=== PATIENT | male | born 1965 | race Caucasian/White ===

== ENCOUNTER 2019-06-01 22:53 | Inpatient (IN) | payer OTHER ==
[~2019-06-01] VITALS: Ht 172.7 cm; Wt 103.0 kg
[2019-06-02 00:30] VITALS: BP 135/96
--- NOTE | 2019-06-02 00:30 | NUR ---
SANDER HANDTELEVISION NEWSCAST DIRECTOR NOTES Admitted this patient direct from [facility] to TELE 322-2 due to CHF under the service of Dr. Aviles. Admission routine done. On tele with Sinus Tach noted. Patient denies any discomfort at this time. Admission orders noted and carried out. Kept on bed clean, dry and comfortable. Call light within easy reach. Will continue to monitor accordingly.
[2019-06-02] MEDS ORDERED: ONDANSETRON HCL/PF 4 MG/2 ML VIAL IVP PRN (01:00)
[2019-06-02] MEDS ORDERED: MAGNESIUM HYDROXIDE 30 ML UDC PO PRN (01:00)
[2019-06-02] MEDS ORDERED: ZOLPIDEM TARTRATE 5 MG TABLET PO PRN (01:00)
[2019-06-02] MEDS ORDERED: HYDROCODONE/APAP 5/325MG 1 EACH TABLET PO PRN (01:00)
[2019-06-02] MEDS ORDERED: MAG HYDROX/AL HYDROX/SIMETH 30 ML UDC PO PRN (01:00)
[2019-06-02] MEDS ORDERED: ACETAMINOPHEN 325 MG TABLET PO PRN (01:00)
[2019-06-02] MEDS ORDERED: Z GUARD REMEDY 2 OZ OINT TP PRN (01:00)
[2019-06-02 01:32] LABS: BASOPHILS # (AUTO) 0.1 /CMM (0.0-0.2); BASOPHILS % (AUTO) 2.4 % (0.0-2.0); EOSINOPHILS % (AUTO) 1.5 % (0.0-6.0); HEMATOCRIT 30 % (39-51); HEMOGLOBIN 8.9 g/dL (13.5-17.5); LYMPHOCYTES # (AUTO) 1.2 /CMM (0.8-4.8); LYMPHOCYTES % (AUTO) 32.9 % (20.0-44.0); MEAN CORPUSCULAR HGB CONC 30 g/dl (31.0-36.0); MEAN CORPUSCULAR VOLUME 65 fL (80-96); MONOCYTES # (AUTO) 0.3 /CMM (0.1-1.30); MONOCYTES % (AUTO) 9.1 % (2.0-12.0); NEUTROPHILS % (AUTO) 54.1 % (43.0-81.0); PLATELET COUNT (AUTO) 81 /CMM (150-450); RED BLOOD CELL COUNT(AUTO) 4.58 MIL/uL (4.5-6.0); WHITE BLOOD COUNT (AUTO) 3.7 K/uL (4.3-11.0)
[2019-06-02 01:42] LABS: ALBUMIN 3.1 g/dL (3.4-5.0); BILIRUBIN,DIRECT 0.6 mg/dL (0.0-0.2); BILIRUBIN,TOTAL 1.7 mg/dL (0.2-1.0); CALCIUM, SERUM 7.7 mg/dL (8.5-10.1); CREATININE 0.8 mg/dL (0.6-1.3); POTASSIUM 3.2 mmol/L (3.5-5.1); TOTAL PROTEIN, SERUM 7.3 g/dL (6.4-8.2)
[2019-06-02 01:55] LABS: LYMPHOCYTES % (MANUAL) 32 % (16-48); MONOCYTES % (MANUAL) 6 % (0-11.0); NEUTROPHILS % (MANUAL) 60 (42-76)
[2019-06-02 01:56] LABS: EOSINOPHILS % (MANUAL) 2 % (0-4)
[2019-06-02] MEDS: FUROSEMIDE 40 MG/4 ML VIAL IV SCH ×3 (02:11→17:54)
[2019-06-02 04:00] VITALS: BP 129/92
[2019-06-02 04:34] VITALS: BP 129/92
--- NOTE | 2019-06-02 05:17 | NUR ---
ALTERATIONS SEWER NOTES Patient noted with 8secs monomorphic V-tach. Patient denies any discomfort at this time. Paged mortgage loan computation clerk MD, with STAT lab orders, noted and carried out. Will continue to monitor accordingly.
[2019-06-02 06:44] LABS: POTASSIUM 2.9 mmol/L (3.5-5.1)
--- NOTE | 2019-06-02 07:38 | NUR ---
PHOTOGRAPHIC LABORATORY SUPERVISOR NOTES CRITICAL LAB RESULT MAG 1.2, TROP I - 0.421. K-2.9. PAGED DR. ASHLEY, WITH ORDERS NOTED AND CARRIED OUT.
--- NOTE | 2019-06-02 07:47 | NUR ---
RESIDENTIAL CARE OFFICER CLOSING NOTES Patient asleep, no new unusualities noted. All due meds given as ordered. All nursing needs attended. On fall precaution. Call light within easy reach. Endorsed to the next shift.
--- NOTE | 2019-06-02 07:55 | NUR ---
ms rn received on bed, awake,alert,oriented x3, not in any form of distress, respirations even and unlabored,no sob noted, denies chest pain at this time, will monitor patient.
[2019-06-02] MEDS ORDERED: PROP10TA68 PO (07:59)
[2019-06-02] MEDS ORDERED: FOLI1TAB16 PO (07:59)
[2019-06-02] MEDS ORDERED: THIA100T88 PO (07:59)
[2019-06-02] MEDS ORDERED: MULT-24 PO (07:59)
[2019-06-02 08:00] VITALS: BP 130/87
[2019-06-02] MEDS ORDERED: Magnesium 1 GM/2 ML VIAL IV ONE (08:00)
--- NOTE | 2019-06-02 08:00 | NUR ---
ms rn was seen by dr. katerina romero/ orders made and carried out.
[2019-06-02] MEDS: Magnesium 1GM/D5W 100ML PREMIX 100 ML IV SCH ×4 (08:56→13:54)
--- NOTE | 2019-06-02 09:30 | NUR ---
ms yohannes breakfast served,due meds given,[id number] well. replaced all electrolytes w/ additional to give from dr. ruiz's order.
[2019-06-02] MEDS: POTASSIUM CHLORIDE 20 MEQ TAB.PRT.SR PO SCH ×3 (12:00→14:48)
--- NOTE | 2019-06-02 13:10 | NUR ---
Social service consult requested by Dr. Aviles for alcoholism. Pt. is a 54 year old male who was admitted to [facility] for vomiting blood. SW met with pt. bedside. Pt. is alert and oriented x 4. Pt. was sitting on his bed having lunch at time of the assessment. Pt. is cooperative and pleasant with SW during the assessment. Pt. resides with his and children at [address] [place] [address] in [place]. [place] Pt. denies any drug or cigarette use. Pt. is an alcoholic and drinks approximately 4 24oz beers per day. Pt. has been drinking for the past 30 years. Pt. recently had a DUI. Pt. has been mandated by the court to attend an alcohol rehabilitation program. JULIAN gave pt. the following alcohol treatment program referrals: [facility], ; [facility] and [facility] . No other social service needs are requested at this time. SW is available, if needed.
[2019-06-02] MEDS: Potassium Chloride 10 MEQ, LIDOCAINE HCL/PF 1% 1 ML in IV D5W 50 ML IV SCH ×4 (14:48→18:54)
[2019-06-02 16:00] VITALS: BP 143/98
--- NOTE | 2019-06-02 18:00 | NUR ---
ms rn on bed, no distress noted.
--- NOTE | 2019-06-02 19:30 | NUR ---
RN NOTES RECEIVED PT. AWAKE ON BED, A/OX4, ST ON TELE MONITOR HR-101, DENIES PAIN, NO SOB, CALL LIGHT WITHIN REACH, SIDERAILSUPX2, CONTINUE TO MONITOR
[2019-06-02 20:00] VITALS: BP 129/89
--- NOTE | 2019-06-02 23:23 | NUR ---
RN NOTES COMPLAINED OF HEADACHE TYLENOL 650MG PO GIVEN ORDERED,
[2019-06-03] VITALS: BP 125/92
--- NOTE | 2019-06-03 06:11 | NUR ---
RN NOTES AWAKE, DENIES PAIN, NO SOB, MORNING CARE RENDERED, CALL LIGHT WITHIN REACH, SIDERAILSUPX2, PT. NEEDS ATTENDED
[2019-06-03 07:19] LABS: BASOPHILS # (AUTO) 0.1 /CMM (0.0-0.2); BASOPHILS % (AUTO) 1.1 % (0.0-2.0); EOSINOPHILS % (AUTO) 1.9 % (0.0-6.0); HEMATOCRIT 34 % (39-51); HEMOGLOBIN 10.3 g/dL (13.5-17.5); LYMPHOCYTES % (AUTO) 19.6 % (20.0-44.0); MEAN CORPUSCULAR HGB CONC 30 g/dl (31.0-36.0); MEAN CORPUSCULAR VOLUME 65 fL (80-96); MONOCYTES # (AUTO) 0.6 /CMM (0.1-1.30); NEUTROPHILS # (AUTO) 3.4 /CMM (1.8-8.9); NEUTROPHILS % (AUTO) 66.4 % (43.0-81.0); PLATELET COUNT (AUTO) 78 /CMM (150-450); RED BLOOD CELL COUNT(AUTO) 5.24 MIL/uL (4.5-6.0); WHITE BLOOD COUNT (AUTO) 5.1 K/uL (4.3-11.0)
[2019-06-03 07:22] LABS: ALBUMIN 3.1 g/dL (3.4-5.0); BILIRUBIN,TOTAL 3.2 mg/dL (0.2-1.0); CALCIUM, SERUM 8.1 mg/dL (8.5-10.1); CREATININE 0.9 mg/dL (0.6-1.3); MAGNESIUM 1.3 mg/dL (1.8-2.4); PHOSPHORUS 3.6 mg/dL (2.5-4.9); POTASSIUM 3.1 mmol/L (3.5-5.1); TOTAL PROTEIN, SERUM 7.5 g/dL (6.4-8.2)
--- NOTE | 2019-06-03 07:45 | NUR ---
WASHER AND CAPPER MACHINE OPERATOR NOTES PATIENT AWAKE IN BED, ALERT AND ORIENTED X4, NO RESPIRATORY DISTRESS NOTED, NO C/O PAIN AT THIS TIME. SKIN WARM TO TOUCH, IV ON THE RAC #18G, INTACT AND PATENT, NO REDNESS, NO INFILTRATION NOTED. PATIENT'S NEEDS ATTENDED. BED ON LOWEST LOCKED POSITION, CALL LIGHT WITHIN REACH. WILL CONTINUE TO MONITOR.
[2019-06-03 08:00] VITALS: BP 129/87
[2019-06-03] MEDS: Magnesium 1GM/D5W 100ML PREMIX 100 ML IV SCH ×4 (08:02→11:18)
[2019-06-03] MEDS: POTASSIUM CHLORIDE 20 MEQ TAB.PRT.SR PO SCH ×5 (08:10→12:09)
[2019-06-03] MEDS: FUROSEMIDE 40 MG/4 ML VIAL IV SCH ×2 (08:11→17:45)
[2019-06-03 09:34] LABS: LYMPHOCYTES % (MANUAL) 25 % (16-48); MONOCYTES % (MANUAL) 9 % (0-11.0); NEUTROPHILS % (MANUAL) 66 (42-76)
[2019-06-03] MEDS ORDERED: Thiamine 100 MG in IV D5W 50 ML IV SCH (12:00)
--- NOTE | 2019-06-03 12:00 | NUR ---
RN/TELE notes, assumed pt's care, awake alert, oriented x4, verbally responsive,denies any pain, no c/o pain, denies any sob at this time.
[2019-06-03] MEDS ORDERED: Folic acid 1 MG in IV D5W 50 ML IV SCH (13:00)
[2019-06-03 15:58] VITALS: BP 111/80
--- NOTE | 2019-06-03 17:03 | NUR ---
Pt up sitting on bedside chair, no c/o discomfort, no sob, no respiratory distress, encourage to let know his needs, call light in reach.
--- NOTE | 2019-06-03 19:15 | NUR ---
trench pipe layer opening notes Pt is alert and oriented x4. Pt is a Irish speaking and able to make needs known. Pt is sitting in bed comfortably. Respiration is normal. No SOB. No nausea or vomiting. Pt denies any pain or discomfort. IV sites at RAC#18 is patent, intact and SL. Pt has a steady gait. Instructed to call. Safety precautions is maintained. Bed at low position, brakes on, side rails upX2 and call light is within reach. Will continue to monitor and assist all needs.
[2019-06-03 20:00] VITALS: BP 118/76
[2019-06-04] VITALS: BP_SYST 125; BP_DIAS 68; BP_DIAS 88
--- NOTE | 2019-06-04 | NUR ---
reports analysis manager notes Pt is resting in bed comfortably watching TV. No SOB. NO nausea or vomiting. VS is stable. Pt connected to warp dyeing vat tender showed sinus tachy 109 bpm. Instructed to call. Will continue to monitor.
[2019-06-04 04:00] VITALS: BP 130/79
[2019-06-04 06:26] VITALS: BP 130/79
[2019-06-04 06:28] LABS: BASOPHILS # (AUTO) 0.2 /CMM (0.0-0.2); BASOPHILS % (AUTO) 2.5 % (0.0-2.0); HEMATOCRIT 36 % (39-51); HEMOGLOBIN 10.5 g/dL (13.5-17.5); LYMPHOCYTES # (AUTO) 1.3 /CMM (0.8-4.8); LYMPHOCYTES % (AUTO) 21.5 % (20.0-44.0); MEAN CORPUSCULAR HGB CONC 30 g/dl (31.0-36.0); MEAN CORPUSCULAR VOLUME 65 fL (80-96); MONOCYTES # (AUTO) 0.6 /CMM (0.1-1.30); MONOCYTES % (AUTO) 9.8 % (2.0-12.0); NEUTROPHILS % (AUTO) 64.2 % (43.0-81.0); PLATELET COUNT (AUTO) 100 /CMM (150-450); RED BLOOD CELL COUNT(AUTO) 5.44 MIL/uL (4.5-6.0); WHITE BLOOD COUNT (AUTO) 6.2 K/uL (4.3-11.0)
[2019-06-04 06:59] LABS: ALBUMIN 3.2 g/dL (3.4-5.0); BILIRUBIN,TOTAL 3.3 mg/dL (0.2-1.0); CALCIUM, SERUM 8.4 mg/dL (8.5-10.1); MAGNESIUM 1.5 mg/dL (1.8-2.4); PHOSPHORUS 3.9 mg/dL (2.5-4.9); POTASSIUM 3.8 mmol/L (3.5-5.1); TOTAL PROTEIN, SERUM 7.6 g/dL (6.4-8.2)
--- NOTE | 2019-06-04 07:30 | NUR ---
ethylene oxide panelboard operator closing notes Pt is alert and oriented x4. Pt is sitting in bed comfortably watching TV. NO SOB. No nausea or vomiting. Pt denies any pain or discomfort. IV sites at R AC is intact, patent and SL. VS is stable. Afebrile. residential monitor showed 102. Safety precautions is maintained. Instructed to call. Bed at low position and call light is within reach. Will endorse to morning nurse for SHEILA.
[2019-06-04 08:00] VITALS: BP 130/96
--- NOTE | 2019-06-04 08:05 | NUR ---
CAREER DEVELOPMENT ASSOCIATE NOTES PT IN BED, AWAKE, ALERT AND ORIENTED, NO COMPLAINT OF PAIN, RESPIRATIONS NORMAL, CALL LIGHT WITHIN REACH, SEEN BY DR. POPE, DISCHARGE ORDER GIVEN, PT INFORMED, NEEDS ATTENDED.
[2019-06-04] MEDS: FUROSEMIDE 40 MG/4 ML VIAL IV SCH (08:18)
[2019-06-04] MEDS: Magnesium 1GM/D5W 100ML PREMIX 100 ML IV SCH ×4 (08:18→11:40)
[2019-06-04] MEDS ORDERED: FOLIC ACID 1 MG TABLET PO SCH (11:00)
[2019-06-04] MEDS ORDERED: THIAMINE HCL 100 MG TABLET PO SCH (11:00)
--- NOTE | 2019-06-04 13:05 | NUR ---
RN MS NOTES PT AWAKE, ALERT AND ORIENTED, DENIES PAIN, RESPIRATIONS NORMAL, ABLE TO AMBULATE WITH STEADY GAIT INSIDE HIS ROOM, DISCHARGE AND MEDICATION INSTRUCTIONS PROVIDED TO PT, VERBALIZED UNDERSTANDING, PRESCRIPTION GIVEN TO PT, PT REFUSED SKIN CHECK, ALREADY DRESSED UP AND EAGER TO GO HOME, PT STATED THAT NOBODY IS AVAILABLE TO PICK HIM UP, REQUESTING FOR A BUS PASS, PER PT, HIS IS AT HOME AND WAITING FOR HIM AND AWARE THAT HE IS BEING DISCHARGED, ALL BELONGINGS ACCOUNTED FOR, INSTRUCTED PT TO SEE HIS PCP AND CHEMICAL WORKER, VERBALIZED UNDERSTANDING, ASSISTED BY DECKHAND MAINTENANCE TO HOSPITAL LOBBY, LEFT IN STABLE CONDITION.
== END 2019-06-04 13:09 | disposition home or self-care (01) | DRG 205 ==
LOC: TELE 06-02 00:19 → MED 06-03 08:31 → TELE 06-03 08:52 → MED 06-04 09:21
PROVIDERS: ADMIT Internal Medicine; ATTEND Internal Medicine
DX: I42.6 Alcoholic cardiomyopathy (principal); I21.A1 Myocardial infarction type 2; G92 Toxic encephalopathy; I47.2 Ventricular tachycardia; D61.818 Other pancytopenia; E78.5 Hyperlipidemia, unspecified; I50.33 Acute on chronic diastolic (congestive) heart failure; E83.42 Hypomagnesemia; F10.229 Alcohol dependence with intoxication, unspecified; I11.0 Hypertensive heart disease with heart failure; K74.60 Unspecified cirrhosis of liver; E87.1 Hypo-osmolality and hyponatremia; Z79.899 Other long term (current) drug therapy; F17.200 Nicotine dependence, unspecified, uncomplicated
CPT/HCPCS: 36415; 71045-TC; 80051-TC; 80053-TC; 80076-TC; 82140-TC; 83735-TC; 84100-TC; 84484-TC; 85025-TC; 87081-TC; 93307-TC; 97116-TC; 97530-TC; G0378; J1940; J3411; J3475; J3480; J3490; J7030; J7050; J7060